=== PATIENT | male | born 1980 | race Caucasian/White ===

== ENCOUNTER → 2017-08-31 | Outpatient (CLI) | payer BC, OTHER ==
[2016-08-16 09:48] VITALS: BP 128/74
[~2017-08-31] MED LIST: BUPIVACAINE MPF 0.25% 10 ML VIAL. ONE; CARI350T PO; IOHEXOL 180 MG/ML 10 ML VIAL. ONE; NAPR-695 PO; OMEP20TA8 PO; OXYC-323 PO; TADA5TAB PO; methylPREDNISolone ACETATE 80 MG/ML VIAL. ONE
--- NOTE | 2017-08-31 18:57 | PAIN ---
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 HISTORY OF PRESENT ILLNESS: The patient is a 37-year-old male who returns for followup status post right intraarticular hip joint injection, last seen on 06/02/2016. The patient did very well with this with about a 60% improvement overall. The patient reports the pain is returning now, worse with walking, standing, changing positions climbing stairs, especially putting all his weight on his right side and right hip. Pain is radiating to the right groin into anterior thigh as well as into the hip joint itself. The patient reports much better with sitting or lying down, does not awaken him from sleep at night, has been sleeping quite well about 8 hours a night. The patient reports he has been very active. He started a new company, [employer] business, has been very active. There is a lot of traveling and sitting in the car, riding as well. The patient reports the pain is now aching, sharp, dull, on and off in intensity, again worse with weightbearing, standing, changing positions, climbing stairs. Pain described as an 8 on a scale of 10 at its worst, 6 on average and a 1 at its least, is a 6 today. PHYSICAL EXAMINATION: VITAL SIGNS: Today, the patient's blood pressure is 128/76, pulse 78, respirations 18, temperature is 98.2 degrees Fahrenheit, height is 6 feet 2 inches, weight is 223 pounds. GENERAL: The patient is awake, alert, oriented, appropriate, very pleasant demeanor. HEENT: Shows normocephalic, atraumatic. Extraocular movements are intact, symmetrical. Oral cavity shows mucous membranes moist and pink. Dentition is intact. NECK: Shows anterior throat supple without palpable lymphadenopathy noted. Swallow reflex is symmetrical. CHEST: Shows normal with inspection. Breath sounds are clear to auscultation bilaterally. HEART: Shows S1, S2 clear. No murmurs auscultated. ABDOMEN: Soft, nontender, nondistended. No palpable organomegaly is noted. MUSCULOSKELETAL: Back shows spine grossly in the midline, normal-appearing thoracic kyphosis and lumbar lordotic curvature. The patient's lower extremities show deep tendon reflexes 2+ in the patellar, 1+ in tendo-calcaneus tendons and are equal. Motor exam is strong with 5/5 dorsiflexion, extension, quadriceps and hamstring flexion and equal bilaterally. The patient does have a positive Kirk sign with external rotation on the right side of the hip and negative on the left. Peripheral pulses are 2+ posterior tibial bilaterally. No peripheral edema is noted. PLAN: Options were discussed with the patient. The patient's old chart was reviewed. His current medication regimen updated. Current review of systems updated today as well. We will proceed with a right-sided intraarticular hip joint injection today with fluoroscopic guidance. Risks were again discussed including, but not limited to bleeding, infection, possibility of intravascular injection sequelae, spread of local anesthetic and numbness, side effects of steroid medication and poor results regarding pain control. The patient understands and wished to proceed. The patient is to return to the clinic in approximately 2 weeks or as necessary, would like to call for his next appointment, was encouraged to increase activity as tolerated. The patient will also follow up with his orthopedic surgeon in approximately 2 weeks as scheduled. DIAGNOSIS: Right hip joint pain with primary osteoarthritis, right hip joint. PROCEDURE: Right intraarticular hip joint injection with C-arm fluoroscopic guidance under sterile prep and drape using local anesthetic. MEDICATIONS INJECTED: A total of 80 mg Depo-Medrol plus 3 mL of 0.25% bupivacaine and 3 mL of Isovue for contrast. CONDITION AT DISCHARGE: Stable. The patient tolerated procedure well, had no complications. JULISSA RIOS MD DR: KATIA/izabella JOB#: [id number] / [id number]
== END | disposition home or self-care (01) ==
LOC: PNCL 07:37
PROVIDERS: ATTEND Anesthesiology
DX: M16.11 Unilateral primary osteoarthritis, right hip (principal); K21.9 Gastro-esophageal reflux disease without esophagitis; F41.9 Anxiety disorder, unspecified; F17.200 Nicotine dependence, unspecified, uncomplicated; Z86.69 Personal history of other diseases of the nervous system and sense organs; Z72.89 Other problems related to lifestyle; Z88.0 Allergy status to penicillin; Z88.8 Allergy status to other drugs, medicaments and biological substances
CPT/HCPCS: 20610; 77002; J1040; J3490